=== PATIENT | male | born 1975 | race Caucasian/White ===

== ENCOUNTER 2020-11-20 13:28 | Observation (INO) | payer MEDICAID, SELFPAY ==
[2020-11-20 13:29] VITALS: BP 163/119; PULSE 105; RESP 18; TEMP 36; O2SAT 99; BMI 35.2
[2020-11-20 14:41] LABS: Absolute Lymphocyte Count 4.62 X10^3/uL (0.83-4.51); Absolute Neutrophil Count 5.9 X10^3/uL (2.0-7.7); Basophil# 0.09 X10^3/uL; Basophil% 0.7 % (0-1); Eosinophil# 0.29 X10^3/uL; Eosinophils% 2.4 % (0-5); Hemoglobin 15.6 g/dL (13.0-16.5); Lymphocyte # 4.62 X10^3/ul (4.0); Lymphocyte % 38.2 % (19-41); Mean Corp Hgb Conc 33.9 g/dL (32-36); Mean Corpuscular Hgb 31.3 pg (27.0-32.0); Mean Corpuscular Volume 92.4 fL (80-94); Monocyte# 1.15 X10^3/uL; Monocyte% 9.5 % (0-10); NRBC Flagged by Analyzer 0 % (0-5); Neutrophil % 48.9 % (47-70); Platelet Count 377 K/mm3 (150-450); RBC Distribution Width CV 12.5 % (11.6-14.6); RBC Distribution Width SD 42.3 fl (35.1-43.9); Red Blood Count 4.98 M/mm3 (4.6-6.2); White Blood Count 12.1 K/mm3 (4.4-11.0)
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
--- NOTE | 2020-11-20 14:49 | ED.VISSUMM ---
- ER Visit Summary Date of Service: 11/20/20 Chief Complaint: Detox History of Present Illness: The patient is a 45 M who is requesting detox from benzodiazepines. He uses 4 mg of Ativan a day. Last use was yesterday. He is also using crystal methamphetamines. No alcohol use. No history of seizures. He has not had withdrawal symptoms yet. He was referred to the ED for admission by Dr. Iraheta, according to the patient. Physical Examination: Heart rate 105 and hypertensive. Otherwise vitals unremarkable. Afebrile. Alert and oriented. No acute distress. Calm and cooperative. No suicidal or homicidal thoughts. Heart tachycardic. Lungs clear. Skin appears normal. Test Results: CBC showed a white count of 12.1. Chemistry panel, tox, alcohol pending. Emergency Department Course and Treatment: Patient was discussed with the hospitalist. They will contact Dr. Iraheta about further orders. Patient will be admitted for detox and withdrawal. Treatment Plan: As above Disposition: Admission Impression: Benzodiazepine withdrawal This note was generated with [employer] dictation software. It may contain incorrect words, spelling, and punctuation that were not noted in review of the chart prior to signing ED Disposition - Plan for ED Patient: Referrals: CARRINGTON KAPLAN [Other]
[2020-11-20 14:55] LABS: Amphetamine Urine VISTA POSITIVE (<1000 ng/mL); Barbiturate Urine VISTA NEGATIVE (< 200 ng/mL); Benzodiazepine Urine VISTA NEGATIVE (< 200 ng/mL); Cocaine Urine VISTA NEGATIVE (< 300 ng/mL); Ecstacy Urine VISTA NEGATIVE (< 500 ng/mL); Methadone Urine VISTA NEGATIVE (< 300 ng/mL); PCP Urine VISTA NEGATIVE (< 25 ng/mL); THC Urine VISTA POSITIVE (< 50 ng/mL); Vista UDS pH Range 7
[2020-11-20 15:00] VITALS: BMI 35.3
[2020-11-20 15:00] LABS: AST(SGOT) 35 U/L (15-37); Alanine Aminotransfer ALT/SGPT 53 U/L (16-61); Albumin, Serum 4.1 g/dL (3.2-5.0); Alkaline Phosphatase 69 U/L (45-117); Anion Gap 9 (5-15); BUN 23 mg/dL (7-18); BUN/Creat Ratio 16.8 RATIO (10-20); Bilirubin, Direct 0.14 mg/dL (0.00-0.30); Calcium,Total 9.7 mg/dL (8.5-10.1); Chloride 103 mmol/L (98-107); Creatinine, Serum 1.37 mg/dL (0.70-1.30); EST Glomerular Filtration Rate 60 mL/min (>60); Est Glom Filt Rate - Afr Amer 73 mL/min (>60); Estimated Creatinine Clearance 76.31 ml/min; Globulin 3.6 g/dL (2.2-4.2); Glucose 102 mg/dL (74-106); Potassium 3.9 mmol/L (3.5-5.1); Protein, Total 7.7 g/dL (6.4-8.2); Sodium Level 135 mmol/L (136-145)
[2020-11-20 15:02] LABS: Alcohol, Blood (Medical)-Serum < 3.0 mg/dL
[2020-11-20 15:28] VITALS: BP 147/103; PULSE 100; RESP 18; TEMP 36; O2SAT 95
[2020-11-20 16:35] VITALS: BMI 31.4
[2020-11-20] MEDS: Lactated Ringers 1,000 ML 125 ML IV (17:16)
[2020-11-20 17:40] VITALS: O2SAT 95
[2020-11-20 17:41] LABS: HIV - WCH Non-Reactive (Nonreactive)
[2020-11-20] MEDS: LORazepam 1 MG Tablet 2 MG PO ×2 (18:21→22:41)
[2020-11-20] MEDS: Lisinopril 5 MG Tablet PO (18:22)
[2020-11-20] MEDS: Ibuprofen 600 MG Tablet PO (18:26)
--- NOTE | 2020-11-20 19:28 | CM.ED ---
Social Work Consult: Substance Abuse Referral Source: Self Referral due to reason for admission Telephone call to Joey-Marina Gay. Marina updated on patient admission to [facility]. This child welfare social worker unable to speak with patient prior to patient going to acute care setting. Mehrdad Jeronimo MSW, MARYLU-S
[2020-11-20 22:00] VITALS: BP 133/91; PULSE 88; RESP 18; TEMP 36.6; O2SAT 95
[2020-11-20] MEDS: Mirtazapine 15 MG Tablet PO (22:08)
[2020-11-20] MEDS: Atorvastatin Calcium 20 MG Tablet PO (22:11)
[2020-11-21] MEDS: LORazepam 1 MG Tablet 2 MG PO ×2 (02:37→06:18)
[2020-11-21 03:30] VITALS: BP 131/91; PULSE 82; RESP 16; TEMP 36.4; O2SAT 97
[2020-11-21 06:22] VITALS: BP 113/68; PULSE 82; RESP 16; TEMP 36.4; O2SAT 94
[2020-11-21 07:23] VITALS: O2SAT 94
[2020-11-21 09:50] VITALS: BP 127/85; PULSE 101; RESP 18; TEMP 36.4; O2SAT 94
--- NOTE | 2020-11-21 10:56 | PHA.DC.MR ---
Pharmacy Service has performed discharge medication reconciliation for this patient. The patient's discharge medication list was reviewed for discrepancies and discrepancies were resolved. Home Medications Sertraline HCl [Zoloft] 100 mg PO DAILY 11/20/20
--- NOTE | 2020-11-21 11:02 | DCINST_ITS ---
- Discharge Diagnoses Current Active Problems: Current Active and Chronic Problems Benzodiazepine abuse (Acute) HTN (hypertension) (Chronic) Tobacco use (Chronic) HLD (hyperlipidemia) (Chronic) Anxiety and depression (Chronic) Methamphetamine abuse (Chronic) IV drug abuse (Chronic) You will use the following diet at home:: No restrictions Your food should be the consistency of: Regular Your liquids should be the consistency of: Regular/Thin Discharge Activity: Return to Normal Activity Weight Bearing Status: Full weight bearing Allergies/Adverse Reactions: Allergies No Known Allergies Allergy (Verified 11/20/20 13:32) Medications to take at Discharge Sertraline HCl [Zoloft] 100 mg PO DAILY 11/20/20 Primary Care Physician: CARRINGTON KAPLAN [Other] Please follow up with your Primary Care Physician in: as scheduled Test Results: Test results from this visit will be discussed in further detail at your follow- up appointment, if applicable. Please Follow Up With: 180 if needed
--- NOTE | 2020-11-21 13:22 | CASEMGMT ---
Social Work Note Isaiah from [facility] currently at [facility]. [facility] updated. Kaitlyn Coelho MANAGEMENT TECHNICIAN, CONSUMER EDUCATION SPECIALIST
[2020-11-22 08:08] LABS: HEPATITIS B SURFACE AG Negative (Negative); Hepatitis A AB, Total Negative (Negative); Hepatitis A IgM Antibody Negative (Negative); Hepatitis B Core AB IgM Negative (Negative); Hepatitis B Core Ab Total Negative (Negative); Hepatitis C Ab <0.1 s/co ratio (0.0-0.9)
[2020-11-22 08:44] LABS: Hep B Surface Antibodies Non Reactive (.)
--- NOTE | 2020-11-22 14:54 | DS.PCM_ITS ---
Discharge Date and Diagnosis - Problem List Patient Problems: Active and Suspected Problems Benzodiazepine abuse (Acute) Date of Admission: 11/20/20 Date of Discharge: 11/21/20 - Primary Discharge Diagnosis Acute Problems: Active Problems #1 polysubstance abuse with methamphetamines and cannabinoids #2 malingerer #3 anxiety/depression #4 elevated creatinine-etiology unclear - Secondary Discharge Diagnosis Chronic Problems: Chronic Problems HTN (hypertension) (Chronic) Tobacco use (Chronic) HLD (hyperlipidemia) (Chronic) Anxiety and depression (Chronic) Methamphetamine abuse (Chronic) IV drug abuse (Chronic) Hospital Course and Treatment Operations: None Procedures: None Summary of Care Provided: The patient is a 45 year old M who was seen in the emergency room at [facility] requesting services for detox from benzodiazepines. Patient stated he was told to come to the emergency room at the direction of 180. Labs obtained on the patient showed a slightly elevated white blood cell count, patient's tox cream was positive for cannabinoids and amphetamines. Patient's creatinine was elevated at 1.37. Patient was placed into observation status on [facility] 3, orders were entered and using the detox order set for benzodiazepines, on the morning of 11/21/2020, I interviewed the patient and he denied abusing benzodiazepines even though he stated in the ER that he did, he requested discharge and stated he did not know why he was in the hospital. I offered to have 180 talked with him that day but he wished to be discharged without talking with them. On examination he appeared in good health and spirits. Vital signs as documented. Skin warm and dry and without overt rashes. Neck without JVD, neck was supple, trachea midline, thyroid was normal. Lungs clear bilaterally, normal air movement was noted. Heart exam notable for regular rhythm, normal sounds and absence of murmurs, rubs or gallops. Abdomen unremarkable and without evidence of organomegaly, masses, or abdominal aortic enlargement. Bowel sounds are present, abdomen is not distended. Extremities nonedematous, no cyanosis was noted, no clubbing was noted. Neuro: Cranial nerves II through XII are grossly intact, no focal motor deficits were noted, sensation to light touch and pinprick intact, motor exam 5/5 throughout. Psych: Patient is alert and oriented x3, he is showing manicky behavior Patient was discharged in stable condition on 11/21/2020. Patient Problems: Active and Suspected Problems Benzodiazepine abuse (Acute) - Physical Exam Vitals/I&O's: Vital Signs Temp Pulse Resp BP Pulse Ox 97.5 F L 101 H 18 127/85 H 94 11/21/20 09:50 11/21/20 09:50 11/21/20 09:50 11/21/20 09:50 11/21/20 09:50 Oxygen Delivery Method Room Air Weight: 105.279 kg Body Mass Index (BMI) 31.4 Intake and Output for Last 24 Hours 11/20/20 11/21/20 11/22/20 23:59 23:59 23:59 Intake Total 1000 / 1000 Output Total 800 / 800 Balance 200 / 200 Laboratory Results 11/21/20 06:44: Hepatitis A IgM Ab Negative, Hepatitis A Ab Total Negative, Hep Bs Antigen Negative, Hep B Core Total Ab Negative, Hep B Core IgM Ab Negative, Hepatitis C Ab Confirm <0.1, Hep C Confirm Com 1 Comment Discharge Activity: Return to Normal Activity Weight Bearing Status: Full weight bearing Home Medications: Medications to take at Discharge Sertraline HCl [Zoloft] 100 mg PO DAILY 11/20/20 Primary Care Physician: CARRINGTON KAPLAN [Other] Please follow up with your Primary Care Physician in: as scheduled Please Follow Up With: 180 if needed Minutes spent on discharge:: 30 Patient Condition:: Stable Medical Necessity - Tobacco Use Smoking Status: Current every day smoker Tobacco Use: Cigarettes Meaningful Use Info Meaningful Use Diagnoses (Choose all that apply): None applicable OBSV E&M: 99799 Observation care discharge
== END 2020-11-21 11:19 | disposition home or self-care (01) ==
LOC: ED 14:15 → MS3 11-21 06:59
PROVIDERS: Admitting Provider Family Medicine; Emergency Provider Emergency Medicine; Visit Provider Internal Medicine
DX: F15.13 Other stimulant abuse with withdrawal (principal); F12.10 Cannabis abuse, uncomplicated; Z76.5 Malingerer [conscious simulation]; F31.9 Bipolar disorder, unspecified; F41.9 Anxiety disorder, unspecified; I10 Essential (primary) hypertension; E78.5 Hyperlipidemia, unspecified; Z79.899 Other long term (current) drug therapy; F19.10 Other psychoactive substance abuse, uncomplicated; F17.210 Nicotine dependence, cigarettes, uncomplicated; Z20.6 Contact with and (suspected) exposure to human immunodeficiency virus [HIV]; R79.89 Other specified abnormal findings of blood chemistry
CPT/HCPCS: 36415; 80048; 80076; 80307; 82077; 85025; 86703; 86704; 86705; 86706; 86708; 86709; 86803; 87340; 96360; 96361; 99218; 99282; 99406; J7120; G0378